=== PATIENT | male | born 1960 | race Two or more races ===

== ENCOUNTER 2020-11-16 09:16 | Emergency (ER) | payer OTHER ==
[~2020-11-16] VITALS: Ht 172.7 cm; Wt 78.0 kg
[2020-11-16] MEDS ORDERED: LIPITOR40 M1 (09:29)
[2020-11-16] MEDS ORDERED: ZOLOFT50 MG (09:30)
[2020-11-16] MEDS ORDERED: PARA LA PRESION (09:33)
== END 2020-11-16 12:57 | disposition home or self-care (01) ==
LOC: ER 09:16
DX: U07.1 COVID-19 (principal); B34.9 Viral infection, unspecified; Z20.822 Contact with and (suspected) exposure to COVID-19

== ENCOUNTER 2020-11-23 11:00 | Outpatient (CLI) | payer OTHER ==
[~2020-11-23 11:00] MED LIST: LIPITOR40 M1; PARA LA PRESION; ZOLOFT50 MG
== END 2020-11-23 13:00 | disposition home or self-care (01) ==
LOC: ASH CLINIC 11:00
PROVIDERS: ATTEND Emergency Medicine
DX: Z23 Encounter for immunization (principal); U07.1 COVID-19